=== PATIENT | male | born 1950 | race Caucasian/White ===

== ENCOUNTER 2022-06-14 22:37 | Emergency (ER) | payer OTHER ==
[~2022-06-14] VITALS: Ht 182.9 cm; Wt 161.9 kg
[2022-06-14 22:45] VITALS: BP_SYST 145
[2022-06-14] MEDS ORDERED: DILTIAZEM HCL 30 MG TABLET PO ONE (23:00)
[2022-06-14] MEDS ORDERED: dilTIAZem HCL IVP 5 MG/ML VIAL IVP ONE (23:00)
[2022-06-14] MEDS ORDERED: ASPIRIN 81 MG TAB.CHEW PO ONE (23:00)
[2022-06-14 23:08] LABS: BASOPHILS % (AUTO) 0.1 % (0.0-2.0); HEMOGLOBIN 15.3 g/dL (14.0-18.0); LYMPHOCYTES # (AUTO) 0.5 K/uL (1.0-5.5); LYMPHOCYTES % (AUTO) 4.6 % (20.5-51.5); MEAN CORPUSCULAR HEMOGLOBIN 34 pg (27-31); MEAN CORPUSCULAR HGB CONC 35 % (32-36); MEAN CORPUSCULAR VOLUME 99 fL (79.0-98.0); MONOCYTES # (AUTO) 0.6 K/uL (0.0-1.0); MONOCYTES % (AUTO) 5.3 % (1.7-9.3); NEUTROPHILS # (AUTO) 9.8 K/uL (1.8-7.7); RED BLOOD CELL COUNT(AUTO) 4.45 MIL/uL (4.2-6.2); WHITE BLOOD COUNT (AUTO) 10.9 K/uL (4.8-10.8)
[2022-06-14 23:21] LABS: ANION GAP 7 (5-15); CALCIUM 8.7 mg/dL (8.4-11.0); CHLORIDE 102 mmol/L (98-107); CREATININE 1.46 mg/dL (0.55-1.30); GLUCOSE 120 mg/dL (70-99); UREA NITROGEN, BLOOD 17 mg/dL (8-21)
[2022-06-14 23:25] LABS: INR 1.5 (0.80-1.20); PROTHROMBIN TIME 15.3 SECS (9.5-12.5)
[2022-06-14 23:28] LABS: PLATELET COUNT (AUTO) 53 K/uL (130-430)
[2022-06-14 23:33] LABS: ALANINE AMINOTRANSFERASE 75 U/L (12-78); ASPARTATE AMINOTRANSFERASE 60 U/L (10-37); TOTAL BILIRUBIN 3.1 mg/dL (0.0-1.0)
[2022-06-15] MEDS ORDERED: dilTIAZem HCL IVP 5 MG/ML VIAL IVP ONE (02:15)
[2022-06-15] MEDS ORDERED: ACETAMINOPHEN 500 MG TABLET PO ONE (02:15)
[2022-06-15 03:36] VITALS: BP_SYST 142
[2022-06-15] MEDS ORDERED: LISI-209 PO (19:30)
[2022-06-15] MEDS ORDERED: APIX5TAB PO (19:30)
[2022-06-15] MEDS ORDERED: DILT180C67 PO (19:30)
[2022-06-15] MEDS ORDERED: DILT-118 PO (19:30)
[2022-06-15] MEDS ORDERED: FURO40TA5 PO (19:30)
[2022-06-15] MEDS ORDERED: LEVO50TA8 PO (19:30)
== END 2022-06-15 03:36 | disposition home or self-care (01) ==
LOC: SED 22:37
DX: M25.552 Pain in left hip (principal); I11.0 Hypertensive heart disease with heart failure; I50.9 Heart failure, unspecified; K76.89 Other specified diseases of liver; Z79.899 Other long term (current) drug therapy
CPT/HCPCS: 99285; 96374; 71045; 80053; 82550; 83880; 85025; 85610; 85730; 84484; 36415; 74177; 76376; 96376; J3490 ×2; Q9967

== ENCOUNTER 2022-06-15 16:47 | Inpatient (IN) | payer OTHER ==
[~2022-06-15] VITALS: Ht 185.4 cm; Wt 158.8 kg
[2022-06-15 17:01] VITALS: BP_SYST 138
[2022-06-15] MEDS ORDERED: dilTIAZem HCL IVP 5 MG/ML VIAL IVP ONE (18:00)
[2022-06-15 18:32] LABS: BASOPHILS % (AUTO) 0.3 % (0.0-2.0); HEMATOCRIT 45.7 % (36-54); HEMOGLOBIN 15.9 g/dL (14.0-18.0); LYMPHOCYTES # (AUTO) 0.5 K/uL (1.0-5.5); LYMPHOCYTES % (AUTO) 5.4 % (20.5-51.5); MEAN CORPUSCULAR HEMOGLOBIN 34 pg (27-31); MEAN CORPUSCULAR HGB CONC 35 % (32-36); MEAN CORPUSCULAR VOLUME 99 fL (79.0-98.0); MONOCYTES # (AUTO) 0.5 K/uL (0.0-1.0); MONOCYTES % (AUTO) 5.2 % (1.7-9.3); NEUTROPHILS % (AUTO) 89.1 % (40.0-70.0); RED BLOOD CELL COUNT(AUTO) 4.61 MIL/uL (4.2-6.2); RED CELL DISTRIBUTION WIDTH 15.2 % (9.0-15.0)
[2022-06-15 18:35] LABS: ANION GAP 7 (5-15); CALCIUM 8.8 mg/dL (8.4-11.0); CHLORIDE 102 mmol/L (98-107); CREATININE 1.34 mg/dL (0.55-1.30); GLUCOSE 122 mg/dL (70-99); PLATELET COUNT (AUTO) 47 K/uL (130-430); UREA NITROGEN, BLOOD 21 mg/dL (8-21)
[2022-06-15 18:42] LABS: ALANINE AMINOTRANSFERASE 79 U/L (12-78); ALBUMIN 3.2 g/dL (3.4-4.8); ASPARTATE AMINOTRANSFERASE 80 U/L (10-37); PHOSPHORUS 2.6 mg/dL (2.7-4.5); TOTAL BILIRUBIN 2.4 mg/dL (0.0-1.0)
[2022-06-15] MEDS ORDERED: DILTIAZEM HCL 180 MG CAP.SR.24H PO ONE (19:15)
[2022-06-15 19:25] LABS: BILIRUBIN,URINE NEGATIVE (NEGATIVE); BLOOD, URINE NEGATIVE (NEGATIVE); CLARITY/URINE CLEAR (CLEAR); COLOR,URINE YELLOW (YELLOW); GLUCOSE,URINE NEGATIVE (NEGATIVE); KETONES,URINE NEGATIVE (NEGATIVE); LEUKOCYTE ESTERASE ,URINE NEGATIVE (NEGATIVE); NITRITE, URINE NEGATIVE (NEGATIVE); PROTEIN URINE NEGATIVE (NEGATIVE)
[2022-06-15] MEDS ORDERED: APIX5TAB PO (19:30)
[2022-06-15] MEDS ORDERED: LEVO50TA8 PO (19:30)
[2022-06-15] MEDS ORDERED: LISI-209 PO (19:30)
[2022-06-15] MEDS ORDERED: DILT180C67 PO (19:30)
[2022-06-15] MEDS ORDERED: FURO40TA5 PO (19:30)
[2022-06-15] MEDS ORDERED: DILT-118 PO (19:30)
[2022-06-15] MEDS ORDERED: DILTIAZEM HCL 60 MG TABLET ONE (19:39)
[2022-06-15] MEDS ORDERED: ONDANSETRON HCL 4 MG/2 ML VIAL IVP PRN (22:45)
[2022-06-15] MEDS ORDERED: ACETAMINOPHEN 325 MG TABLET PO PRN (22:45)
[2022-06-15] MEDS ORDERED: LORazepam 2 MG/ML VIAL IVP PRN (22:45)
[2022-06-15] MEDS ORDERED: NALOXONE HCL 0.4 MG/ML AMP (NARCAN) IVP PRN ×2 (22:45)
[2022-06-15] MEDS ORDERED: HYDROcodone/ACETAMIN 5-325 MG TAB (NORCO/ VICODIN) PO PRN (22:45)
[2022-06-15] MEDS ORDERED: HYDROcodone/ACETAMIN 10-325 MG TAB PO PRN (22:45)
[2022-06-15 23:00] VITALS: BP_SYST 126
[2022-06-16 00:15] VITALS: BP_SYST 126
[2022-06-16 04:00] VITALS: BP_SYST 144
[2022-06-16] MEDS ORDERED: ACETAMINOPHEN 325 MG TABLET PO PRN (06:30)
[2022-06-16] MEDS: LEVOTHYROXINE SODIUM 0.05 MG TABLET PO SCH (07:01)
[2022-06-16] MEDS: NORMAL SALINE 5 ML DISP.SYRIN IVF SCH ×3 (07:02→21:01)
[2022-06-16 07:51] LABS: ANION GAP 9 (5-15); CALCIUM 8.3 mg/dL (8.4-11.0); CHLORIDE 103 mmol/L (98-107); CHOLESTEROL 131 mg/dL (<200); CREATININE 1.23 mg/dL (0.55-1.30); GLUCOSE 107 mg/dL (70-99); HDL CHOLESTEROL 33 mg/dL (>45); THYROID STIMULATING HORMONE 1.04 uIu/mL (0.34-4.82); TRIGLYCERIDES 105 mg/dL (30-150); UREA NITROGEN, BLOOD 23 mg/dL (8-21)
[2022-06-16 07:54] LABS: BASOPHILS % (AUTO) 0.3 % (0.0-2.0); EOSINOPHILS % (AUTO) 0.1 % (0.0-4.0); HEMATOCRIT 41.1 % (36-54); HEMOGLOBIN 14.1 g/dL (14.0-18.0); LYMPHOCYTES # (AUTO) 0.9 K/uL (1.0-5.5); MEAN CORPUSCULAR HEMOGLOBIN 34 pg (27-31); MEAN CORPUSCULAR HGB CONC 34 % (32-36); MEAN CORPUSCULAR VOLUME 100 fL (79.0-98.0); MONOCYTES # (AUTO) 0.8 K/uL (0.0-1.0); MONOCYTES % (AUTO) 9.2 % (1.7-9.3); NEUTROPHILS # (AUTO) 6.8 K/uL (1.8-7.7); NEUTROPHILS % (AUTO) 80.4 % (40.0-70.0); RED BLOOD CELL COUNT(AUTO) 4.12 MIL/uL (4.2-6.2); RED CELL DISTRIBUTION WIDTH 15.2 % (9.0-15.0); WHITE BLOOD COUNT (AUTO) 8.5 K/uL (4.8-10.8)
[2022-06-16 08:03] LABS: PLATELET COUNT (AUTO) 48 K/uL (130-430)
[2022-06-16 08:28] VITALS: BP_SYST 129
[2022-06-16] MEDS ORDERED: lisinopriL 5 MG TABLET PO SCH (09:00)
[2022-06-16] MEDS: DILTIAZEM HCL 180 MG CAP.SR.24H PO SCH ×2 (10:02→20:55)
[2022-06-16] MEDS: FUROSEMIDE 40 MG TABLET PO SCH ×2 (10:03→20:57)
[2022-06-16] MEDS: APIXABAN 2.5 MG TABLET PO SCH ×2 (10:05→20:56)
[2022-06-16 11:57] VITALS: BP_SYST 125
[2022-06-16 20:00] VITALS: BP_SYST 135
[2022-06-17 00:06] VITALS: BP_SYST 130
[2022-06-17] MEDS: LEVOTHYROXINE SODIUM 0.05 MG TABLET PO SCH (06:10)
[2022-06-17] MEDS: NORMAL SALINE 5 ML DISP.SYRIN IVF SCH ×3 (06:11→22:01)
[2022-06-17 08:00] VITALS: BP_SYST 113
[2022-06-17 08:20] LABS: BASOPHILS % (AUTO) 0.4 % (0.0-2.0); EOSINOPHILS # (AUTO) 0.1 K/uL (0.0-0.4); EOSINOPHILS % (AUTO) 1.3 % (0.0-4.0); HEMATOCRIT 40.3 % (36-54); HEMOGLOBIN 13.9 g/dL (14.0-18.0); LYMPHOCYTES # (AUTO) 0.6 K/uL (1.0-5.5); LYMPHOCYTES % (AUTO) 9.2 % (20.5-51.5); MEAN CORPUSCULAR HEMOGLOBIN 34 pg (27-31); MEAN CORPUSCULAR HGB CONC 35 % (32-36); MEAN CORPUSCULAR VOLUME 99 fL (79.0-98.0); MONOCYTES # (AUTO) 0.6 K/uL (0.0-1.0); MONOCYTES % (AUTO) 8.8 % (1.7-9.3); NEUTROPHILS # (AUTO) 5.6 K/uL (1.8-7.7); NEUTROPHILS % (AUTO) 80.3 % (40.0-70.0); PLATELET COUNT (AUTO) 51 K/uL (130-430); RED BLOOD CELL COUNT(AUTO) 4.06 MIL/uL (4.2-6.2); RED CELL DISTRIBUTION WIDTH 15.2 % (9.0-15.0)
[2022-06-17 08:58] LABS: ALANINE AMINOTRANSFERASE 70 U/L (12-78); ALBUMIN 2.5 g/dL (3.4-4.8); ANION GAP 4 (5-15); ASPARTATE AMINOTRANSFERASE 70 U/L (10-37); CALCIUM 8.1 mg/dL (8.4-11.0); CHLORIDE 103 mmol/L (98-107); CREATININE 1.11 mg/dL (0.55-1.30); GLUCOSE 92 mg/dL (70-99); PHOSPHORUS 3.4 mg/dL (2.7-4.5); TOTAL BILIRUBIN 2.5 mg/dL (0.0-1.0); UREA NITROGEN, BLOOD 21 mg/dL (8-21)
[2022-06-17] MEDS: FUROSEMIDE 40 MG TABLET PO SCH ×2 (08:58→21:59)
[2022-06-17] MEDS: DILTIAZEM HCL 180 MG CAP.SR.24H PO SCH ×2 (08:58→21:59)
[2022-06-17] MEDS: APIXABAN 2.5 MG TABLET PO SCH ×2 (09:00→22:00)
[2022-06-17 12:00] VITALS: BP_SYST 101
[2022-06-17 16:15] VITALS: BP_SYST 109
[2022-06-17 19:00] VITALS: BP_SYST 113
[2022-06-17 20:00] VITALS: BP_SYST 113
[2022-06-18] MEDS: NORMAL SALINE 5 ML DISP.SYRIN IVF SCH ×3 (06:21→23:41)
[2022-06-18] MEDS: LEVOTHYROXINE SODIUM 0.05 MG TABLET PO SCH (06:21)
[2022-06-18 06:54] LABS: BASOPHILS % (AUTO) 0.5 % (0.0-2.0); EOSINOPHILS # (AUTO) 0.1 K/uL (0.0-0.4); EOSINOPHILS % (AUTO) 1.4 % (0.0-4.0); HEMATOCRIT 40.8 % (36-54); HEMOGLOBIN 14.1 g/dL (14.0-18.0); LYMPHOCYTES # (AUTO) 0.9 K/uL (1.0-5.5); LYMPHOCYTES % (AUTO) 10.8 % (20.5-51.5); MEAN CORPUSCULAR HEMOGLOBIN 34 pg (27-31); MEAN CORPUSCULAR HGB CONC 34 % (32-36); MEAN CORPUSCULAR VOLUME 100 fL (79.0-98.0); MONOCYTES # (AUTO) 0.8 K/uL (0.0-1.0); MONOCYTES % (AUTO) 9.6 % (1.7-9.3); NEUTROPHILS # (AUTO) 6.6 K/uL (1.8-7.7); NEUTROPHILS % (AUTO) 77.7 % (40.0-70.0); PLATELET COUNT (AUTO) 56 K/uL (130-430); RED CELL DISTRIBUTION WIDTH 14.8 % (9.0-15.0); WHITE BLOOD COUNT (AUTO) 8.5 K/uL (4.8-10.8)
[2022-06-18 07:23] LABS: ALANINE AMINOTRANSFERASE 81 U/L (12-78); ALBUMIN 2.4 g/dL (3.4-4.8); ANION GAP 4 (5-15); ASPARTATE AMINOTRANSFERASE 76 U/L (10-37); CALCIUM 8.1 mg/dL (8.4-11.0); CHLORIDE 101 mmol/L (98-107); CREATININE 1.18 mg/dL (0.55-1.30); GLUCOSE 95 mg/dL (70-99); PHOSPHORUS 3.2 mg/dL (2.7-4.5); TOTAL BILIRUBIN 3.1 mg/dL (0.0-1.0); UREA NITROGEN, BLOOD 19 mg/dL (8-21)
[2022-06-18 08:00] VITALS: BP_SYST 141
[2022-06-18] MEDS: FUROSEMIDE 40 MG TABLET PO SCH ×2 (08:41→23:34)
[2022-06-18] MEDS: DILTIAZEM HCL 180 MG CAP.SR.24H PO SCH ×2 (08:42→23:33)
[2022-06-18] MEDS: APIXABAN 2.5 MG TABLET PO SCH ×2 (08:44→23:37)
[2022-06-19] VITALS: BP_SYST 126
[2022-06-19] MEDS: NORMAL SALINE 5 ML DISP.SYRIN IVF SCH ×3 (06:02→21:49)
[2022-06-19] MEDS: LEVOTHYROXINE SODIUM 0.05 MG TABLET PO SCH (06:02)
[2022-06-19 06:10] LABS: BASOPHILS % (AUTO) 0.4 % (0.0-2.0); EOSINOPHILS # (AUTO) 0.2 K/uL (0.0-0.4); EOSINOPHILS % (AUTO) 2.1 % (0.0-4.0); HEMATOCRIT 41.4 % (36-54); HEMOGLOBIN 14.3 g/dL (14.0-18.0); LYMPHOCYTES # (AUTO) 1.1 K/uL (1.0-5.5); LYMPHOCYTES % (AUTO) 12.1 % (20.5-51.5); MEAN CORPUSCULAR HEMOGLOBIN 34 pg (27-31); MEAN CORPUSCULAR HGB CONC 35 % (32-36); MEAN CORPUSCULAR VOLUME 99 fL (79.0-98.0); MONOCYTES # (AUTO) 0.9 K/uL (0.0-1.0); MONOCYTES % (AUTO) 9.6 % (1.7-9.3); NEUTROPHILS # (AUTO) 7.2 K/uL (1.8-7.7); NEUTROPHILS % (AUTO) 75.8 % (40.0-70.0); PLATELET COUNT (AUTO) 63 K/uL (130-430); RED BLOOD CELL COUNT(AUTO) 4.17 MIL/uL (4.2-6.2); RED CELL DISTRIBUTION WIDTH 14.8 % (9.0-15.0); WHITE BLOOD COUNT (AUTO) 9.5 K/uL (4.8-10.8)
[2022-06-19 06:50] LABS: ANION GAP 6 (5-15); CALCIUM 8.1 mg/dL (8.4-11.0); CHLORIDE 100 mmol/L (98-107); CREATININE 1.21 mg/dL (0.55-1.30); GLUCOSE 94 mg/dL (70-99); UREA NITROGEN, BLOOD 18 mg/dL (8-21)
[2022-06-19 08:04] VITALS: BP_SYST 117
[2022-06-19] MEDS: DILTIAZEM HCL 180 MG CAP.SR.24H PO SCH ×2 (08:40→21:00)
[2022-06-19] MEDS: FUROSEMIDE 40 MG TABLET PO SCH ×2 (08:41→21:00)
[2022-06-19] MEDS: APIXABAN 2.5 MG TABLET PO SCH ×2 (08:43→21:46)
[2022-06-19 12:08] VITALS: BP_SYST 103
[2022-06-19 16:45] VITALS: BP_SYST 102
[2022-06-19 20:00] VITALS: BP_SYST 93
[2022-06-20 00:19] VITALS: BP_SYST 108
[2022-06-20 02:10] VITALS: BP_SYST 130
[2022-06-20] MEDS: LEVOTHYROXINE SODIUM 0.05 MG TABLET PO SCH (05:58)
[2022-06-20] MEDS: NORMAL SALINE 5 ML DISP.SYRIN IVF SCH (05:59)
[2022-06-20 07:40] LABS: BASOPHILS % (AUTO) 0.6 % (0.0-2.0); EOSINOPHILS # (AUTO) 0.3 K/uL (0.0-0.4); EOSINOPHILS % (AUTO) 3.9 % (0.0-4.0); HEMATOCRIT 42.2 % (36-54); HEMOGLOBIN 14.6 g/dL (14.0-18.0); LYMPHOCYTES # (AUTO) 1.3 K/uL (1.0-5.5); LYMPHOCYTES % (AUTO) 16.6 % (20.5-51.5); MEAN CORPUSCULAR HEMOGLOBIN 34 pg (27-31); MEAN CORPUSCULAR HGB CONC 35 % (32-36); MEAN CORPUSCULAR VOLUME 99 fL (79.0-98.0); MONOCYTES # (AUTO) 0.7 K/uL (0.0-1.0); MONOCYTES % (AUTO) 8.5 % (1.7-9.3); NEUTROPHILS # (AUTO) 5.5 K/uL (1.8-7.7); NEUTROPHILS % (AUTO) 70.4 % (40.0-70.0); PLATELET COUNT (AUTO) 77 K/uL (130-430); RED BLOOD CELL COUNT(AUTO) 4.28 MIL/uL (4.2-6.2); RED CELL DISTRIBUTION WIDTH 14.6 % (9.0-15.0); WHITE BLOOD COUNT (AUTO) 7.9 K/uL (4.8-10.8)
[2022-06-20 07:52] LABS: ANION GAP 5 (5-15); CALCIUM 8.2 mg/dL (8.4-11.0); CHLORIDE 99 mmol/L (98-107); CREATININE 1.13 mg/dL (0.55-1.30); GLUCOSE 98 mg/dL (70-99); UREA NITROGEN, BLOOD 16 mg/dL (8-21)
[2022-06-20 08:08] VITALS: BP_SYST 116
[2022-06-20] MEDS: FUROSEMIDE 40 MG TABLET PO SCH (08:21)
[2022-06-20] MEDS: DILTIAZEM HCL 180 MG CAP.SR.24H PO SCH (08:21)
[2022-06-20] MEDS: APIXABAN 2.5 MG TABLET PO SCH (08:23)
[2022-06-20 12:19] VITALS: BP_SYST 112
[2022-06-20 13:10] VITALS: BP_SYST 117
== END 2022-06-20 13:40 | disposition home or self-care (01) | DRG 682 ==
LOC: SED 16:47 → STU 19:21
PROVIDERS: ADMIT Specialist; ATTEND Specialist
DX: N17.0 Acute kidney failure with tubular necrosis (principal); J96.00 Acute respiratory failure, unspecified whether with hypoxia or hypercapnia; G45.0 Vertebro-basilar artery syndrome; E46 Unspecified protein-calorie malnutrition; I48.20 Chronic atrial fibrillation, unspecified; Z68.42 Body mass index [BMI] 45.0-49.9, adult; I69.351 Hemiplegia and hemiparesis following cerebral infarction affecting right dominant side; G45.9 Transient cerebral ischemic attack, unspecified; K74.60 Unspecified cirrhosis of liver; I10 Essential (primary) hypertension; D69.6 Thrombocytopenia, unspecified; E03.9 Hypothyroidism, unspecified; Z20.822 Contact with and (suspected) exposure to COVID-19; G62.9 Polyneuropathy, unspecified; Z79.01 Long term (current) use of anticoagulants; Z79.899 Other long term (current) drug therapy
CPT/HCPCS: 36415; 36600; 70450-TC; 76376; 80048; 80053; 80061; 81003; 82140; 82803-TC; 83735; 84100; 84443; 84484; 85025; 85379; 87081; 93005; 93306; 93880; 93970; 97110-GP; 97116-GP; 97163-GP; 97530-GP; 99285; G0378; J3490

== ENCOUNTER 2023-04-03 16:25 | Inpatient (IN) | payer OTHER ==
[~2023-04-03] VITALS: Ht 175.3 cm; Wt 158.1 kg
[2023-04-03 16:25] VITALS: BP_SYST 144; PULSE 107; RESP 22; TEMP 98.2; O2SAT 91
[~2023-04-03 16:25] MED LIST: APIX5TAB PO; DILT-118 PO; FURO40TA5 PO; LEVO50TA8 PO; LISI-209 PO
[2023-04-03] MEDS ORDERED: CHOL200019 PO (16:57)
[2023-04-03 18:54] LABS: BASOPHILS # (AUTO) 0.1 K/uL (0.0-0.2); BASOPHILS % (AUTO) 0.8 % (0.0-2.0); EOSINOPHILS # (AUTO) 0.1 K/uL (0.0-0.4); HEMATOCRIT 43.6 % (36-54); HEMOGLOBIN 15.1 g/dL (14.0-18.0); LYMPHOCYTES # (AUTO) 0.9 K/uL (1.0-5.5); LYMPHOCYTES % (AUTO) 9.3 % (20.5-51.5); MEAN CORPUSCULAR HEMOGLOBIN 35 pg (27-31); MEAN CORPUSCULAR HGB CONC 35 % (32-36); MEAN CORPUSCULAR VOLUME 100 fL (79.0-98.0); MONOCYTES # (AUTO) 0.8 K/uL (0.0-1.0); MONOCYTES % (AUTO) 7.4 % (1.7-9.3); NEUTROPHILS # (AUTO) 8.4 K/uL (1.8-7.7); NEUTROPHILS % (AUTO) 81.5 % (40.0-70.0); PLATELET COUNT (AUTO) 142 K/uL (130-430); RED BLOOD CELL COUNT(AUTO) 4.35 MIL/uL (4.2-6.2); RED CELL DISTRIBUTION WIDTH 15.5 % (9.0-15.0); WHITE BLOOD COUNT (AUTO) 10.2 K/uL (4.8-10.8)
[2023-04-03 19:09] LABS: ANION GAP 9 (5-15); CALCIUM 8.6 mg/dL (8.4-11.0); CARBON DIOXIDE 29 mmol/L (23-29); CHLORIDE 99 mmol/L (98-107); CREATINE KINASE, TOTAL 114 U/L (39-308); CREATININE 1.86 mg/dL (0.55-1.30); GLUCOSE 101 mg/dL (74-106); POTASSIUM 3.4 mmol/L (3.5-5.1); SODIUM SERUM 137 mmol/L (136-145); UREA NITROGEN, BLOOD 29 mg/dL (8-21)
[2023-04-03] MEDS ORDERED: FUROSEMIDE 40 MG/4 ML VIAL IVP ONE (19:45)
[2023-04-03 19:55] LABS: INR 1.6 (0.80-1.20)
[2023-04-03 20:11] LABS: FREE T4 (FREE THYROXINE) 1.6 ng/dL (0.6-1.6); THYROID STIMULATING HORMONE 4.46 uIu/mL (0.34-4.82)
[2023-04-03 21:24] LABS: BILIRUBIN,URINE NEGATIVE (NEGATIVE); BLOOD, URINE NEGATIVE (NEGATIVE); CLARITY/URINE CLEAR (CLEAR); COLOR,URINE YELLOW (YELLOW); GLUCOSE,URINE NEGATIVE (NEGATIVE); KETONES,URINE NEGATIVE (NEGATIVE); LEUKOCYTE ESTERASE ,URINE NEGATIVE (NEGATIVE); NITRITE, URINE NEGATIVE (NEGATIVE); PH,URINE 5.5 (5.0-8.0); PROTEIN URINE NEGATIVE (NEGATIVE)
[2023-04-03] MEDS ORDERED: MORPHINE 2 MG/ML INJ. SYRINGE IVP PRN (22:00)
[2023-04-03] MEDS ORDERED: ACETAMINOPHEN 325 MG TABLET PO PRN (22:00)
[2023-04-03] MEDS ORDERED: ONDANSETRON HCL 4 MG/2 ML VIAL IVP PRN (22:00)
[2023-04-03] MEDS ORDERED: HYDROcodone/ACETAMIN 10-325 MG TAB PO PRN (22:00)
[2023-04-03] MEDS ORDERED: HYDROcodone/ACETAMIN 5-325 MG TAB (NORCO/ VICODIN) PO PRN (22:00)
[2023-04-03] MEDS ORDERED: hydrALAZINE HCL 20 MG/ML VIAL IVP PRN (22:15)
[2023-04-03] MEDS ORDERED: POTASSIUM CHLORIDE 20 MEQ TABLET.ER PO PRN (22:15)
[2023-04-03] MEDS ORDERED: guaiFENesin 200 MG/10 ML UDC PO PRN (22:15)
[2023-04-03] MEDS: IPRATROPIUM BROM 0.5 MG/2.5 ML VIAL.NEB (ATROVENT) INH SCH (23:00)
[2023-04-04] VITALS (13 sets, daily range): BP systolic 96–125; PULSE 86–117; RESP 18–22; TEMP 97.5–98.9; O2SAT 93–98
[2023-04-04] MEDS: IPRATROPIUM BROM 0.5 MG/2.5 ML VIAL.NEB (ATROVENT) INH SCH ×6 (02:57→23:38)
[2023-04-04 05:48] LABS: BASOPHILS % (AUTO) 0.8 % (0.0-2.0); EOSINOPHILS # (AUTO) 0.1 K/uL (0.0-0.4); EOSINOPHILS % (AUTO) 1.8 % (0.0-4.0); HEMATOCRIT 36.9 % (36-54); HEMOGLOBIN 12.6 g/dL (14.0-18.0); LYMPHOCYTES # (AUTO) 0.6 K/uL (1.0-5.5); LYMPHOCYTES % (AUTO) 12.1 % (20.5-51.5); MEAN CORPUSCULAR HEMOGLOBIN 35 pg (27-31); MEAN CORPUSCULAR HGB CONC 34 % (32-36); MEAN CORPUSCULAR VOLUME 102 fL (79.0-98.0); MONOCYTES # (AUTO) 0.5 K/uL (0.0-1.0); NEUTROPHILS % (AUTO) 75.3 % (40.0-70.0); PLATELET COUNT (AUTO) 81 K/uL (130-430); RED BLOOD CELL COUNT(AUTO) 3.63 MIL/uL (4.2-6.2); RED CELL DISTRIBUTION WIDTH 15.6 % (9.0-15.0); WHITE BLOOD COUNT (AUTO) 5.3 K/uL (4.8-10.8)
[2023-04-04 06:15] LABS: ALANINE AMINOTRANSFERASE 35 U/L (12-78); ALBUMIN 2.3 g/dL (3.4-4.8); ANION GAP 11 (5-15); ASPARTATE AMINOTRANSFERASE 50 U/L (10-37); CALCIUM 8.5 mg/dL (8.4-11.0); CARBON DIOXIDE 29 mmol/L (23-29); CHLORIDE 104 mmol/L (98-107); GLUCOSE 81 mg/dL (74-106); POTASSIUM 3.4 mmol/L (3.5-5.1); SODIUM SERUM 144 mmol/L (136-145); TOTAL PROTEIN, SERUM 6.3 g/dL (6.4-8.3); UREA NITROGEN, BLOOD 29 mg/dL (8-21)
[2023-04-04] MEDS: FUROSEMIDE 40 MG/4 ML VIAL IVP SCH ×2 (08:38→21:36)
[2023-04-04] MEDS: APIXABAN 2.5 MG TABLET PO SCH ×2 (08:41→21:36)
[2023-04-04] MEDS ORDERED: LEVOTHYROXINE SODIUM 0.05 MG TABLET PO SCH (09:00)
[2023-04-04] MEDS: DILTIAZEM HCL 180 MG CAP.SR.24H PO SCH ×2 (14:41→21:35)
[2023-04-05] VITALS (8 sets, daily range): BP systolic 94–115; PULSE 95–98; RESP 18–20; TEMP 97.1–97.8; O2SAT 94–97
[2023-04-05] MEDS: IPRATROPIUM BROM 0.5 MG/2.5 ML VIAL.NEB (ATROVENT) INH SCH ×6 (03:32→23:22)
[2023-04-05] MEDS: LEVOTHYROXINE SODIUM 0.05 MG TABLET PO SCH (06:37)
[2023-04-05 07:28] LABS: BASOPHILS % (AUTO) 0.9 % (0.0-2.0); EOSINOPHILS # (AUTO) 0.1 K/uL (0.0-0.4); EOSINOPHILS % (AUTO) 2.9 % (0.0-4.0); HEMATOCRIT 35.7 % (36-54); HEMOGLOBIN 12.2 g/dL (14.0-18.0); LYMPHOCYTES # (AUTO) 0.6 K/uL (1.0-5.5); LYMPHOCYTES % (AUTO) 12.7 % (20.5-51.5); MEAN CORPUSCULAR HEMOGLOBIN 35 pg (27-31); MEAN CORPUSCULAR HGB CONC 34 % (32-36); MEAN CORPUSCULAR VOLUME 102 fL (79.0-98.0); MONOCYTES # (AUTO) 0.4 K/uL (0.0-1.0); MONOCYTES % (AUTO) 9.2 % (1.7-9.3); NEUTROPHILS # (AUTO) 3.5 K/uL (1.8-7.7); NEUTROPHILS % (AUTO) 74.3 % (40.0-70.0); PLATELET COUNT (AUTO) 73 K/uL (130-430); RED BLOOD CELL COUNT(AUTO) 3.52 MIL/uL (4.2-6.2); RED CELL DISTRIBUTION WIDTH 15.8 % (9.0-15.0); WHITE BLOOD COUNT (AUTO) 4.7 K/uL (4.8-10.8)
[2023-04-05 07:46] LABS: ALANINE AMINOTRANSFERASE 35 U/L (12-78); ALBUMIN 2.2 g/dL (3.4-4.8); ANION GAP 8 (5-15); ASPARTATE AMINOTRANSFERASE 52 U/L (10-37); CALCIUM 8.4 mg/dL (8.4-11.0); CARBON DIOXIDE 30 mmol/L (23-29); CHLORIDE 106 mmol/L (98-107); CREATININE 1.57 mg/dL (0.55-1.30); GLUCOSE 85 mg/dL (74-106); POTASSIUM 3.2 mmol/L (3.5-5.1); SODIUM SERUM 144 mmol/L (136-145); TOTAL BILIRUBIN 2.5 mg/dL (0.0-1.0); TOTAL PROTEIN, SERUM 6.1 g/dL (6.4-8.3); UREA NITROGEN, BLOOD 28 mg/dL (8-21)
[2023-04-05] MEDS: FUROSEMIDE 40 MG/4 ML VIAL IVP SCH ×2 (09:00→21:45)
[2023-04-05] MEDS: DILTIAZEM HCL 180 MG CAP.SR.24H PO SCH ×2 (09:00→21:45)
[2023-04-05] MEDS: APIXABAN 2.5 MG TABLET PO SCH ×2 (09:56→21:46)
[2023-04-06] VITALS (9 sets, daily range): BP systolic 98–102; PULSE 83–96; RESP 18–22; TEMP 97.8–98.1; O2SAT 92–98
[2023-04-06] MEDS: IPRATROPIUM BROM 0.5 MG/2.5 ML VIAL.NEB (ATROVENT) INH SCH ×6 (03:00→23:00)
[2023-04-06] MEDS: LEVOTHYROXINE SODIUM 0.05 MG TABLET PO SCH (06:34)
[2023-04-06] MEDS: DILTIAZEM HCL 180 MG CAP.SR.24H PO SCH (09:00)
[2023-04-06] MEDS: APIXABAN 2.5 MG TABLET PO SCH ×2 (09:00→22:21)
[2023-04-06] MEDS: FUROSEMIDE 40 MG/4 ML VIAL IVP SCH ×2 (09:00→21:00)
[2023-04-06 09:07] LABS: BASOPHILS % (AUTO) 0.7 % (0.0-2.0); EOSINOPHILS # (AUTO) 0.1 K/uL (0.0-0.4); EOSINOPHILS % (AUTO) 2.3 % (0.0-4.0); HEMATOCRIT 40.5 % (36-54); HEMOGLOBIN 13.8 g/dL (14.0-18.0); LYMPHOCYTES # (AUTO) 0.6 K/uL (1.0-5.5); LYMPHOCYTES % (AUTO) 10.4 % (20.5-51.5); MEAN CORPUSCULAR HEMOGLOBIN 35 pg (27-31); MEAN CORPUSCULAR HGB CONC 34 % (32-36); MEAN CORPUSCULAR VOLUME 102 fL (79.0-98.0); MONOCYTES # (AUTO) 0.5 K/uL (0.0-1.0); MONOCYTES % (AUTO) 8.7 % (1.7-9.3); NEUTROPHILS # (AUTO) 4.2 K/uL (1.8-7.7); NEUTROPHILS % (AUTO) 77.9 % (40.0-70.0); PLATELET COUNT (AUTO) 76 K/uL (130-430); RED BLOOD CELL COUNT(AUTO) 3.96 MIL/uL (4.2-6.2); RED CELL DISTRIBUTION WIDTH 15.7 % (9.0-15.0); WHITE BLOOD COUNT (AUTO) 5.4 K/uL (4.8-10.8)
[2023-04-06 09:25] LABS: ALANINE AMINOTRANSFERASE 44 U/L (12-78); ALBUMIN 2.5 g/dL (3.4-4.8); ANION GAP 6 (5-15); ASPARTATE AMINOTRANSFERASE 59 U/L (10-37); CARBON DIOXIDE 31 mmol/L (23-29); CHLORIDE 104 mmol/L (98-107); CREATININE 1.65 mg/dL (0.55-1.30); GLUCOSE 104 mg/dL (74-106); POTASSIUM 3.1 mmol/L (3.5-5.1); SODIUM SERUM 141 mmol/L (136-145); TOTAL BILIRUBIN 2.8 mg/dL (0.0-1.0); TOTAL PROTEIN, SERUM 6.9 g/dL (6.4-8.3); UREA NITROGEN, BLOOD 28 mg/dL (8-21)
[2023-04-07] VITALS (9 sets, daily range): BP systolic 103–118; PULSE 93–109; RESP 18–20; TEMP 97.7–98.3; O2SAT 92–96
[2023-04-07] MEDS: IPRATROPIUM BROM 0.5 MG/2.5 ML VIAL.NEB (ATROVENT) INH SCH ×6 (03:00→23:18)
[2023-04-07] MEDS: LEVOTHYROXINE SODIUM 0.05 MG TABLET PO SCH (06:21)
[2023-04-07 08:19] LABS: BASOPHILS # (AUTO) 0.1 K/uL (0.0-0.2); BASOPHILS % (AUTO) 1.1 % (0.0-2.0); EOSINOPHILS # (AUTO) 0.2 K/uL (0.0-0.4); EOSINOPHILS % (AUTO) 3.1 % (0.0-4.0); HEMATOCRIT 37.9 % (36-54); HEMOGLOBIN 12.9 g/dL (14.0-18.0); LYMPHOCYTES # (AUTO) 0.7 K/uL (1.0-5.5); LYMPHOCYTES % (AUTO) 12.1 % (20.5-51.5); MEAN CORPUSCULAR HEMOGLOBIN 35 pg (27-31); MEAN CORPUSCULAR HGB CONC 34 % (32-36); MEAN CORPUSCULAR VOLUME 102 fL (79.0-98.0); MONOCYTES # (AUTO) 0.5 K/uL (0.0-1.0); MONOCYTES % (AUTO) 8.5 % (1.7-9.3); NEUTROPHILS # (AUTO) 4.2 K/uL (1.8-7.7); NEUTROPHILS % (AUTO) 75.2 % (40.0-70.0); PLATELET COUNT (AUTO) 65 K/uL (130-430); RED BLOOD CELL COUNT(AUTO) 3.72 MIL/uL (4.2-6.2); RED CELL DISTRIBUTION WIDTH 15.5 % (9.0-15.0); WHITE BLOOD COUNT (AUTO) 5.6 K/uL (4.8-10.8)
[2023-04-07 08:34] LABS: ALANINE AMINOTRANSFERASE 44 U/L (12-78); ALBUMIN 2.5 g/dL (3.4-4.8); ANION GAP 6 (5-15); ASPARTATE AMINOTRANSFERASE 60 U/L (10-37); CALCIUM 8.7 mg/dL (8.4-11.0); CARBON DIOXIDE 32 mmol/L (23-29); CHLORIDE 103 mmol/L (98-107); CREATININE 1.34 mg/dL (0.55-1.30); GLUCOSE 89 mg/dL (74-106); POTASSIUM 3.1 mmol/L (3.5-5.1); SODIUM SERUM 141 mmol/L (136-145); TOTAL BILIRUBIN 2.8 mg/dL (0.0-1.0); TOTAL PROTEIN, SERUM 6.7 g/dL (6.4-8.3); UREA NITROGEN, BLOOD 24 mg/dL (8-21)
[2023-04-07] MEDS: FUROSEMIDE 40 MG/4 ML VIAL IVP SCH ×2 (11:14→21:37)
[2023-04-07] MEDS: APIXABAN 2.5 MG TABLET PO SCH ×2 (11:16→21:38)
[2023-04-08] VITALS: BP_SYST 122; PULSE 93; RESP 20; TEMP 97.8; O2SAT 96
[2023-04-08] MEDS: IPRATROPIUM BROM 0.5 MG/2.5 ML VIAL.NEB (ATROVENT) INH SCH ×3 (03:00→10:53)
[2023-04-08 06:15] LABS: BASOPHILS % (AUTO) 0.8 % (0.0-2.0); EOSINOPHILS # (AUTO) 0.2 K/uL (0.0-0.4); EOSINOPHILS % (AUTO) 3.3 % (0.0-4.0); HEMATOCRIT 34.5 % (36-54); LYMPHOCYTES # (AUTO) 0.6 K/uL (1.0-5.5); LYMPHOCYTES % (AUTO) 11.3 % (20.5-51.5); MEAN CORPUSCULAR HEMOGLOBIN 35 pg (27-31); MEAN CORPUSCULAR HGB CONC 35 % (32-36); MEAN CORPUSCULAR VOLUME 101 fL (79.0-98.0); MONOCYTES # (AUTO) 0.4 K/uL (0.0-1.0); NEUTROPHILS % (AUTO) 76.6 % (40.0-70.0); PLATELET COUNT (AUTO) 56 K/uL (130-430); RED BLOOD CELL COUNT(AUTO) 3.41 MIL/uL (4.2-6.2); RED CELL DISTRIBUTION WIDTH 15.4 % (9.0-15.0); WHITE BLOOD COUNT (AUTO) 5.2 K/uL (4.8-10.8)
[2023-04-08 06:46] LABS: ALANINE AMINOTRANSFERASE 45 U/L (12-78); ALBUMIN 2.2 g/dL (3.4-4.8); ANION GAP 3 (5-15); ASPARTATE AMINOTRANSFERASE 64 U/L (10-37); CALCIUM 7.7 mg/dL (8.4-11.0); CARBON DIOXIDE 33 mmol/L (23-29); CHLORIDE 106 mmol/L (98-107); CREATININE 1.23 mg/dL (0.55-1.30); GLUCOSE 90 mg/dL (74-106); POTASSIUM 3.5 mmol/L (3.5-5.1); SODIUM SERUM 142 mmol/L (136-145); TOTAL BILIRUBIN 2.6 mg/dL (0.0-1.0); TOTAL PROTEIN, SERUM 6.3 g/dL (6.4-8.3); UREA NITROGEN, BLOOD 20 mg/dL (8-21)
[2023-04-08] MEDS: LEVOTHYROXINE SODIUM 0.05 MG TABLET PO SCH (07:15)
[2023-04-08 08:00] VITALS: O2SAT 92
[2023-04-08 08:20] VITALS: O2SAT 92
[2023-04-08] MEDS: APIXABAN 2.5 MG TABLET PO SCH (10:07)
[2023-04-08] MEDS: FUROSEMIDE 40 MG/4 ML VIAL IVP SCH (10:08)
[2023-04-08 10:50] VITALS: O2SAT 93
[2023-04-08] MEDS ORDERED: POTA8TAB66 PO (16:06)
[2023-04-08 16:49] VITALS: BP_SYST 125; PULSE 92; RESP 18; TEMP 97; O2SAT 92
[2023-04-08 16:52] VITALS: BP_SYST 125; PULSE 102; RESP 18; TEMP 97
[2023-04-09 00:07] LABS: FOLATE (FOLIC ACID) 4.3 ng/mL (>3.0)
== END 2023-04-08 23:52 | DRG 682 ==
LOC: SED 16:25 → SIC 22:00 → STU 22:43 → SMU 04-04 10:14
PROVIDERS: ADMIT Family Medicine; ATTEND Family Medicine
DX: N17.9 Acute kidney failure, unspecified (principal); E43 Unspecified severe protein-calorie malnutrition; I50.33 Acute on chronic diastolic (congestive) heart failure; J96.21 Acute and chronic respiratory failure with hypoxia; E87.20 Acidosis, unspecified; Z68.43 Body mass index [BMI] 50.0-59.9, adult; I11.0 Hypertensive heart disease with heart failure; K74.60 Unspecified cirrhosis of liver; I48.91 Unspecified atrial fibrillation; E03.9 Hypothyroidism, unspecified; I45.10 Unspecified right bundle-branch block; E87.6 Hypokalemia; Z20.822 Contact with and (suspected) exposure to COVID-19; Z79.84 Long term (current) use of oral hypoglycemic drugs; Z79.899 Other long term (current) drug therapy; Z86.73 Personal history of transient ischemic attack (TIA), and cerebral infarction without residual deficits
CPT/HCPCS: 36415; 71045; 76705; 80048; 80053; 81001; 81003; 82550; 82607; 82746; 83605; 83880; 84439; 84443; 84484; 85025; 85379; 85610-TC; 85730-TC; 87040; 87086; 93005; 93306; 93970; 94640; 94760; 96374; 97110-GP; 97530-GP; 99291; G0378; J1940

== ENCOUNTER 2023-05-12 16:01 | Inpatient (IN) | payer OTHER ==
[~2023-05-12] VITALS: Ht 180.3 cm; Wt 123.4 kg
[2023-05-12 16:01] VITALS: PULSE 88; RESP 22; TEMP 98.3; O2SAT 96
[~2023-05-12 16:01] MED LIST changes: +CHOL200019 PO; -LISI-209 PO; +POTA8TAB66 PO
[2023-05-12] MEDS: DILTIAZEM HCL 60 MG TABLET PO ONE (16:30)
[2023-05-12] MEDS: dilTIAZem HCL IVP 5 MG/ML VIAL IVP ONE ×2 (16:30→18:40)
[2023-05-12 16:39] LABS: BASOPHILS % (AUTO) 2.4 % (0.0-2.0); EOSINOPHILS # (AUTO) 0.5 K/uL (0.0-0.4); EOSINOPHILS % (AUTO) 5.9 % (0.0-4.0); HEMATOCRIT 37.9 % (36-54); HEMOGLOBIN 13.2 g/dL (14.0-18.0); LYMPHOCYTES # (AUTO) 1.2 K/uL (1.0-5.5); LYMPHOCYTES % (AUTO) 15.4 % (20.5-51.5); MEAN CORPUSCULAR HEMOGLOBIN 36 pg (27-31); MEAN CORPUSCULAR HGB CONC 35 % (32-36); MEAN CORPUSCULAR VOLUME 102 fL (79.0-98.0); MONOCYTES # (AUTO) 0.8 K/uL (0.0-1.0); NEUTROPHILS # (AUTO) 5.2 K/uL (1.8-7.7); NEUTROPHILS % (AUTO) 66.3 % (40.0-70.0); PLATELET COUNT (AUTO) 84 K/uL (130-430); RED BLOOD CELL COUNT(AUTO) 3.73 MIL/uL (4.2-6.2); RED CELL DISTRIBUTION WIDTH 15.9 % (9.0-15.0); WHITE BLOOD COUNT (AUTO) 7.8 K/uL (4.8-10.8)
[2023-05-12 16:45] LABS: COVID19 ANTIGEN SOFIA FIA NEGATIVE (NEGATIVE)
[2023-05-12 16:46] LABS: INFLUENZA TYPE A Negative (NEGATIVE); INFLUENZA TYPE B NEGATIVE (NEGATIVE)
[2023-05-12 16:49] LABS: ANION GAP 4 (5-15); CALCIUM 8.3 mg/dL (8.4-11.0); CARBON DIOXIDE 32 mmol/L (23-29); CHLORIDE 100 mmol/L (98-107); CREATININE 1.21 mg/dL (0.55-1.30); GLUCOSE 98 mg/dL (74-106); POTASSIUM 3.1 mmol/L (3.5-5.1); SODIUM SERUM 136 mmol/L (136-145); UREA NITROGEN, BLOOD 19 mg/dL (8-21)
[2023-05-12 16:51] LABS: INR 1.6 (0.80-1.20); PROTHROMBIN TIME 15.8 SECS (9.5-12.5)
[2023-05-12 16:56] LABS: BASOPHILS # (AUTO) 0.2 K/uL (0.0-0.2)
[2023-05-12 17:23] LABS: ALANINE AMINOTRANSFERASE 31 U/L (12-78); ALBUMIN 2.1 g/dL (3.4-4.8); AMYLASE 77 U/L (0-100); ASPARTATE AMINOTRANSFERASE 40 U/L (10-37); BILIRUBIN,DIRECT 1.6 mg/dL (0.0-0.3); CREATINE KINASE, TOTAL 30 U/L (39-308); LIPASE 105 U/L (16-77); TOTAL BILIRUBIN 3.3 mg/dL (0.0-1.0); TOTAL PROTEIN, SERUM 7.4 g/dL (6.4-8.3)
[2023-05-12] MEDS ORDERED: ACETAMINOPHEN 325 MG TABLET PO PRN (18:15)
[2023-05-12] MEDS ORDERED: MORPHINE 2 MG/ML INJ. SYRINGE IVP PRN (18:15)
[2023-05-12] MEDS ORDERED: HYDROcodone/ACETAMIN 10-325 MG TAB PO PRN (18:15)
[2023-05-12] MEDS ORDERED: HYDROcodone/ACETAMIN 5-325 MG TAB (NORCO/ VICODIN) PO PRN (18:15)
[2023-05-12] MEDS: FUROSEMIDE 40 MG/4 ML VIAL IVP ONE (18:15)
[2023-05-12] MEDS ORDERED: niCARdipine 50 MG in D5W 230 ML IV PRN (19:15)
[2023-05-12] MEDS: ALBUMIN HUMAN 5% 250 ML IV ONE (19:33)
[2023-05-12 21:00] VITALS: BP_SYST 92; BP_SYST 99; PULSE 136; PULSE 145; RESP 24; RESP 25; TEMP 96.9; O2SAT 92; O2SAT 95
[2023-05-12 22:00] VITALS: BP_SYST 95; PULSE 109; RESP 23; O2SAT 89
[2023-05-12] MEDS ORDERED: NOREPINEPHRINE BITARTRATE 4 MG in D5W 246 ML IV PRN (22:00)
[2023-05-12] MEDS: CEFEPIME 2 GM in D5W 100 ML IV SCH (22:00)
[2023-05-12] MEDS: AMIODARONE HCL 150 MG in D5W 100 ML IV ONE (22:30)
[2023-05-12] MEDS: AMIODARONE HCL 450 MG/9 ML VIAL IV ONE (22:58)
[2023-05-12] MEDS: AMIODARONE HCL 150 MG/3ML VIAL ONE (22:59)
[2023-05-12 23:00] VITALS: BP_SYST 100; PULSE 94; RESP 24; O2SAT 95
[2023-05-12] MEDS: VANCOMYCIN HCL 1,500 MG in NS 250 ML IV ONE (23:00)
[2023-05-12] MEDS: AMIODARONE HCL 450 MG in D5W 241 ML IV SCH (23:18)
[2023-05-12] MEDS: VANCOMYCIN HCL 1000 MG/VIAL IV ONE (23:21)
[2023-05-12] MEDS: VANCOMYCIN HCL 500 MG/VIAL IV ONE (23:21)
[2023-05-12] MEDS: CEFEPIME 2 GM/VIAL (MAXIPIME) ONE (23:21)
[2023-05-13] VITALS (24 sets, daily range): BP systolic 95–149; PULSE 67–125; RESP 15–26; TEMP 96.8–97.8; O2SAT 90–99
[2023-05-13 04:57] LABS: BASOPHILS # (AUTO) 0.1 K/uL (0.0-0.2); BASOPHILS % (AUTO) 1.2 % (0.0-2.0); EOSINOPHILS # (AUTO) 0.4 K/uL (0.0-0.4); EOSINOPHILS % (AUTO) 5.7 % (0.0-4.0); HEMATOCRIT 32.6 % (36-54); HEMOGLOBIN 11.4 g/dL (14.0-18.0); LYMPHOCYTES # (AUTO) 0.9 K/uL (1.0-5.5); LYMPHOCYTES % (AUTO) 13.6 % (20.5-51.5); MEAN CORPUSCULAR HEMOGLOBIN 36 pg (27-31); MEAN CORPUSCULAR HGB CONC 35 % (32-36); MEAN CORPUSCULAR VOLUME 102 fL (79.0-98.0); MONOCYTES # (AUTO) 0.6 K/uL (0.0-1.0); MONOCYTES % (AUTO) 9.1 % (1.7-9.3); NEUTROPHILS # (AUTO) 4.6 K/uL (1.8-7.7); NEUTROPHILS % (AUTO) 70.4 % (40.0-70.0); PLATELET COUNT (AUTO) 64 K/uL (130-430); RED CELL DISTRIBUTION WIDTH 15.7 % (9.0-15.0); WHITE BLOOD COUNT (AUTO) 6.5 K/uL (4.8-10.8)
[2023-05-13 05:14] LABS: ALANINE AMINOTRANSFERASE 23 U/L (12-78); ANION GAP 6 (5-15); ASPARTATE AMINOTRANSFERASE 32 U/L (10-37); CALCIUM 8.1 mg/dL (8.4-11.0); CARBON DIOXIDE 29 mmol/L (23-29); CHLORIDE 103 mmol/L (98-107); CREATININE 1.09 mg/dL (0.55-1.30); GLUCOSE 91 mg/dL (74-106); SODIUM SERUM 138 mmol/L (136-145); TOTAL BILIRUBIN 4.2 mg/dL (0.0-1.0); TOTAL PROTEIN, SERUM 6.4 g/dL (6.4-8.3); UREA NITROGEN, BLOOD 19 mg/dL (8-21)
[2023-05-13] MEDS: KCL 40 mEq in 100 mL (PREMIX) 100 ML IV ONE (07:57)
[2023-05-13] MEDS: DILTIAZEM HCL 180 MG CAP.SR.24H PO SCH (08:26)
[2023-05-13] MEDS: LEVOTHYROXINE SODIUM 0.05 MG TABLET PO SCH (08:27)
[2023-05-13] MEDS: APIXABAN 2.5 MG TABLET PO SCH (08:27)
[2023-05-13] MEDS: VANCOMYCIN HCL 1,500 MG in NS 250 ML IV SCH (11:24)
[2023-05-13] MEDS: FUROSEMIDE 40 MG/4 ML VIAL IVP ONE (11:26)
[2023-05-13] MEDS: DIGOXIN 0.5 MG/2 ML AMP IVP ONE ×2 (11:45→23:39)
[2023-05-13] MEDS: ALBUMIN HUMAN 25% 50 ML IV SCH (13:32)
[2023-05-13] MEDS: FUROSEMIDE 100 MG in D5W 90 ML IV SCH (15:00)
[2023-05-13] MEDS: DIGOXIN 0.125 MG TABLET PO ONE (17:55)
[2023-05-13] MEDS: NYSTATIN 15 GM TOPICAL POWDER TP ONE (19:21)
[2023-05-13] MEDS: NYSTATIN 15 GM TOPICAL POWDER TP SCH (21:23)
[2023-05-14] VITALS (24 sets, daily range): BP systolic 92–121; PULSE 67–99; RESP 12–30; TEMP 96.7–97.9; O2SAT 90–97
[2023-05-14 06:06] LABS: HEMOGLOBIN 12.4 g/dL (14.0-18.0); MEAN CORPUSCULAR HEMOGLOBIN 35 pg (27-31); MEAN CORPUSCULAR HGB CONC 35 % (32-36); MEAN CORPUSCULAR VOLUME 102 fL (79.0-98.0); PLATELET COUNT (AUTO) 67 K/uL (130-430); RED BLOOD CELL COUNT(AUTO) 3.53 MIL/uL (4.2-6.2); RED CELL DISTRIBUTION WIDTH 15.6 % (9.0-15.0); WHITE BLOOD COUNT (AUTO) 5.3 K/uL (4.8-10.8)
[2023-05-14 06:37] LABS: ALANINE AMINOTRANSFERASE 24 U/L (12-78); ALBUMIN 2.4 g/dL (3.4-4.8); ANION GAP 6 (5-15); ASPARTATE AMINOTRANSFERASE 34 U/L (10-37); CALCIUM 8.4 mg/dL (8.4-11.0); CARBON DIOXIDE 30 mmol/L (23-29); CHLORIDE 106 mmol/L (98-107); CREATININE 1.16 mg/dL (0.55-1.30); GLUCOSE 85 mg/dL (74-106); POTASSIUM 3.3 mmol/L (3.5-5.1); SODIUM SERUM 142 mmol/L (136-145); TOTAL BILIRUBIN 4.6 mg/dL (0.0-1.0); TOTAL PROTEIN, SERUM 7.1 g/dL (6.4-8.3); UREA NITROGEN, BLOOD 21 mg/dL (8-21)
[2023-05-14 08:00] LABS: BASOPHILS % (MANUAL) 0 % (0-2); EOSINOPHILS % (MANUAL) 8 % (0-7); LYMPHOCYTES % (MANUAL) 7 % (20-46); MONOCYTES % (MANUAL) 6 % (0-11); PLATELET ESTIMATE DECREASED (ADEQUATE)
[2023-05-14] MEDS ORDERED: FUROSEMIDE 40 MG/4 ML VIAL IVP SCH (09:00)
[2023-05-14] MEDS: SPIRONOLACTONE 25 MG TABLET (ALDACTONE) PO SCH (09:30)
[2023-05-14] MEDS: POTASSIUM CHLORIDE 20 MEQ TABLET.ER PO ONE (11:23)
[2023-05-15] VITALS (16 sets, daily range): BP systolic 90–158; PULSE 60–85; RESP 15–22; TEMP 97.1–98; O2SAT 91–99
[2023-05-15 05:20] LABS: ERYTHROCYTE SEDIMENTATION RATE 39 MM/HR (0-15)
[2023-05-15 05:28] LABS: BASOPHILS # (AUTO) 0.1 K/uL (0.0-0.2); BASOPHILS % (AUTO) 1.5 % (0.0-2.0); EOSINOPHILS # (AUTO) 0.4 K/uL (0.0-0.4); EOSINOPHILS % (AUTO) 6.5 % (0.0-4.0); HEMATOCRIT 36.5 % (36-54); HEMOGLOBIN 12.6 g/dL (14.0-18.0); LYMPHOCYTES # (AUTO) 0.8 K/uL (1.0-5.5); MEAN CORPUSCULAR HEMOGLOBIN 35 pg (27-31); MEAN CORPUSCULAR HGB CONC 35 % (32-36); MEAN CORPUSCULAR VOLUME 102 fL (79.0-98.0); MONOCYTES # (AUTO) 0.7 K/uL (0.0-1.0); MONOCYTES % (AUTO) 11.9 % (1.7-9.3); NEUTROPHILS # (AUTO) 3.7 K/uL (1.8-7.7); NEUTROPHILS % (AUTO) 66.1 % (40.0-70.0); PLATELET COUNT (AUTO) 71 K/uL (130-430); RED BLOOD CELL COUNT(AUTO) 3.58 MIL/uL (4.2-6.2); RED CELL DISTRIBUTION WIDTH 15.6 % (9.0-15.0); WHITE BLOOD COUNT (AUTO) 5.5 K/uL (4.8-10.8)
[2023-05-15 05:46] LABS: ALANINE AMINOTRANSFERASE 24 U/L (12-78); ALBUMIN 2.4 g/dL (3.4-4.8); ANION GAP 6 (5-15); ASPARTATE AMINOTRANSFERASE 37 U/L (10-37); CALCIUM 8.6 mg/dL (8.4-11.0); CARBON DIOXIDE 30 mmol/L (23-29); CHLORIDE 106 mmol/L (98-107); CREATININE 1.26 mg/dL (0.55-1.30); GLUCOSE 96 mg/dL (74-106); PHOSPHORUS 2.8 mg/dL (2.7-4.5); POTASSIUM 3.3 mmol/L (3.5-5.1); SODIUM SERUM 142 mmol/L (136-145); TOTAL BILIRUBIN 4.4 mg/dL (0.0-1.0); TOTAL PROTEIN, SERUM 7.1 g/dL (6.4-8.3); UREA NITROGEN, BLOOD 23 mg/dL (8-21)
[2023-05-15] MEDS: POTASSIUM CHLORIDE 20 MEQ TABLET.ER PO ONE (13:29)
[2023-05-16] VITALS (10 sets, daily range): BP systolic 94–164; PULSE 56–85; RESP 16–19; TEMP 97–98.6; O2SAT 95–98
[2023-05-16 19:07] LABS: MYCOPLASMA PNEUMONIAE IgM <770 U/mL (0-769)
[2023-05-16 20:06] LABS: LEGIONELLA PNEUMOPHILIA AB <0.91 OD ratio (0.00-0.90)
[2023-05-17] VITALS: BP_SYST 102; PULSE 70; RESP 18; TEMP 97.1; O2SAT 97
[2023-05-17 05:47] LABS: BASOPHILS # (AUTO) 0.1 K/uL (0.0-0.2); BASOPHILS % (AUTO) 1.6 % (0.0-2.0); EOSINOPHILS # (AUTO) 0.4 K/uL (0.0-0.4); EOSINOPHILS % (AUTO) 7.9 % (0.0-4.0); HEMATOCRIT 37.2 % (36-54); HEMOGLOBIN 12.8 g/dL (14.0-18.0); LYMPHOCYTES # (AUTO) 0.8 K/uL (1.0-5.5); LYMPHOCYTES % (AUTO) 16.4 % (20.5-51.5); MEAN CORPUSCULAR HEMOGLOBIN 35 pg (27-31); MEAN CORPUSCULAR HGB CONC 34 % (32-36); MEAN CORPUSCULAR VOLUME 103 fL (79.0-98.0); MONOCYTES # (AUTO) 0.5 K/uL (0.0-1.0); MONOCYTES % (AUTO) 9.4 % (1.7-9.3); NEUTROPHILS # (AUTO) 3.3 K/uL (1.8-7.7); NEUTROPHILS % (AUTO) 64.7 % (40.0-70.0); PLATELET COUNT (AUTO) 59 K/uL (130-430); RED BLOOD CELL COUNT(AUTO) 3.62 MIL/uL (4.2-6.2); RED CELL DISTRIBUTION WIDTH 15.7 % (9.0-15.0); WHITE BLOOD COUNT (AUTO) 5.1 K/uL (4.8-10.8)
[2023-05-17 05:55] LABS: ANION GAP 10 (5-15); CALCIUM 9.1 mg/dL (8.4-11.0); CARBON DIOXIDE 29 mmol/L (23-29); CHLORIDE 102 mmol/L (98-107); CREATININE 1.49 mg/dL (0.55-1.30); GLUCOSE 93 mg/dL (74-106); POTASSIUM 3.5 mmol/L (3.5-5.1); SODIUM SERUM 141 mmol/L (136-145); UREA NITROGEN, BLOOD 24 mg/dL (8-21)
[2023-05-17 08:00] VITALS: O2SAT 96
[2023-05-17 11:59] VITALS: BP_SYST 100; PULSE 74; RESP 18; TEMP 98; O2SAT 95
[2023-05-17 17:35] VITALS: BP_SYST 105; PULSE 80; RESP 21; TEMP 98.7; O2SAT 95
[2023-05-17] MEDS: FUROSEMIDE 40 MG TABLET PO SCH (18:44)
[2023-05-17 19:00] VITALS: O2SAT 97
[2023-05-17 20:00] VITALS: BP_SYST 108; PULSE 84; RESP 16; TEMP 98.2; O2SAT 95
[2023-05-18] VITALS: BP_SYST 114; PULSE 78; RESP 18; TEMP 98.5; O2SAT 97
[2023-05-18 05:19] LABS: BASOPHILS # (AUTO) 0.1 K/uL (0.0-0.2); BASOPHILS % (AUTO) 1.3 % (0.0-2.0); EOSINOPHILS # (AUTO) 0.4 K/uL (0.0-0.4); EOSINOPHILS % (AUTO) 7.6 % (0.0-4.0); HEMATOCRIT 36.5 % (36-54); HEMOGLOBIN 12.7 g/dL (14.0-18.0); LYMPHOCYTES # (AUTO) 0.8 K/uL (1.0-5.5); LYMPHOCYTES % (AUTO) 16.1 % (20.5-51.5); MEAN CORPUSCULAR HEMOGLOBIN 35 pg (27-31); MEAN CORPUSCULAR HGB CONC 35 % (32-36); MEAN CORPUSCULAR VOLUME 102 fL (79.0-98.0); MONOCYTES # (AUTO) 0.6 K/uL (0.0-1.0); MONOCYTES % (AUTO) 10.7 % (1.7-9.3); NEUTROPHILS # (AUTO) 3.3 K/uL (1.8-7.7); NEUTROPHILS % (AUTO) 64.3 % (40.0-70.0); PLATELET COUNT (AUTO) 58 K/uL (130-430); RED CELL DISTRIBUTION WIDTH 15.8 % (9.0-15.0); WHITE BLOOD COUNT (AUTO) 5.2 K/uL (4.8-10.8)
[2023-05-18 05:41] LABS: ANION GAP 7 (5-15); CALCIUM 9.1 mg/dL (8.4-11.0); CARBON DIOXIDE 29 mmol/L (23-29); CHLORIDE 101 mmol/L (98-107); CREATININE 1.65 mg/dL (0.55-1.30); GLUCOSE 94 mg/dL (74-106); POTASSIUM 3.6 mmol/L (3.5-5.1); SODIUM SERUM 137 mmol/L (136-145); UREA NITROGEN, BLOOD 26 mg/dL (8-21)
[2023-05-18 08:00] VITALS: BP_SYST 110; PULSE 74; RESP 20; TEMP 97.7; O2SAT 97
[2023-05-18] MEDS: SPIRONOLACTONE 50 MG TABLET (ALDACTONE) PO SCH (09:29)
[2023-05-18 11:06] LABS: AFP, TUMOR MARKER <1.8 ng/mL (0.0-8.4); CEA 3.3 ng/mL (0.0-4.7)
[2023-05-18 12:54] VITALS: BP_SYST 95; PULSE 96; RESP 20; TEMP 98.4; O2SAT 96
[2023-05-18 16:30] VITALS: BP_SYST 108; PULSE 101; RESP 18; TEMP 98.8; O2SAT 94
[2023-05-18 20:00] VITALS: BP_SYST 101; PULSE 69; RESP 18; TEMP 97.5; O2SAT 99
[2023-05-19 00:26] VITALS: BP_SYST 107; PULSE 66; RESP 19; TEMP 97.2; O2SAT 95
[2023-05-19 08:00] VITALS: O2SAT 98
[2023-05-19 12:00] VITALS: BP_SYST 99; PULSE 91; RESP 22; TEMP 98.2; O2SAT 94
[2023-05-19 16:29] VITALS: BP_SYST 95; PULSE 96; RESP 20; TEMP 98.7; O2SAT 96
[2023-05-19 20:00] VITALS: BP_SYST 95; PULSE 76; RESP 20; TEMP 98.4; O2SAT 97
[2023-05-20 00:24] VITALS: BP_SYST 110; PULSE 70; RESP 17; TEMP 97.7; O2SAT 96
[2023-05-20 08:45] VITALS: BP_SYST 109; PULSE 72; RESP 20; TEMP 97.2; O2SAT 97
[2023-05-20 09:36] VITALS: O2SAT 97
[2023-05-20 11:31] LABS: BASOPHILS # (AUTO) 0.1 K/uL (0.0-0.2); BASOPHILS % (AUTO) 1.2 % (0.0-2.0); EOSINOPHILS # (AUTO) 0.4 K/uL (0.0-0.4); EOSINOPHILS % (AUTO) 6.1 % (0.0-4.0); HEMATOCRIT 35.5 % (36-54); HEMOGLOBIN 12.4 g/dL (14.0-18.0); LYMPHOCYTES # (AUTO) 0.9 K/uL (1.0-5.5); LYMPHOCYTES % (AUTO) 13.7 % (20.5-51.5); MEAN CORPUSCULAR HEMOGLOBIN 36 pg (27-31); MEAN CORPUSCULAR HGB CONC 35 % (32-36); MEAN CORPUSCULAR VOLUME 102 fL (79.0-98.0); MONOCYTES # (AUTO) 0.7 K/uL (0.0-1.0); MONOCYTES % (AUTO) 10.7 % (1.7-9.3); NEUTROPHILS # (AUTO) 4.6 K/uL (1.8-7.7); NEUTROPHILS % (AUTO) 68.3 % (40.0-70.0); PLATELET COUNT (AUTO) 58 K/uL (130-430); RED CELL DISTRIBUTION WIDTH 15.9 % (9.0-15.0); WHITE BLOOD COUNT (AUTO) 6.7 K/uL (4.8-10.8)
[2023-05-20 11:42] LABS: ANION GAP 6 (5-15); CARBON DIOXIDE 28 mmol/L (23-29); CHLORIDE 98 mmol/L (98-107); CREATININE 1.88 mg/dL (0.55-1.30); GLUCOSE 113 mg/dL (74-106); POTASSIUM 3.1 mmol/L (3.5-5.1); SODIUM SERUM 132 mmol/L (136-145); UREA NITROGEN, BLOOD 29 mg/dL (8-21)
[2023-05-20 12:00] VITALS: BP_SYST 104; PULSE 54; RESP 18; TEMP 98.1; O2SAT 90
[2023-05-20] MEDS: CEFEPIME 2 GM in D5W 100 ML IV SCH (15:40)
[2023-05-20 16:00] VITALS: BP_SYST 4; PULSE 67; RESP 18; TEMP 98; O2SAT 93
[2023-05-20 20:00] VITALS: BP_SYST 106; PULSE 78; RESP 18; TEMP 97.3; O2SAT 78
[2023-05-21] VITALS (7 sets, daily range): BP systolic 107–146; PULSE 76–85; RESP 18–20; TEMP 97.1–97.7; O2SAT 94–97
[2023-05-21 00:06] LABS: QUANTIFERON TB GOLD Indeterminate (Negative)
[2023-05-21 04:48] LABS: BASOPHILS # (AUTO) 0.1 K/uL (0.0-0.2); BASOPHILS % (AUTO) 1.3 % (0.0-2.0); EOSINOPHILS # (AUTO) 0.5 K/uL (0.0-0.4); EOSINOPHILS % (AUTO) 6.2 % (0.0-4.0); HEMATOCRIT 36.8 % (36-54); HEMOGLOBIN 12.9 g/dL (14.0-18.0); LYMPHOCYTES # (AUTO) 1.2 K/uL (1.0-5.5); LYMPHOCYTES % (AUTO) 17.1 % (20.5-51.5); MEAN CORPUSCULAR HEMOGLOBIN 36 pg (27-31); MEAN CORPUSCULAR HGB CONC 35 % (32-36); MEAN CORPUSCULAR VOLUME 102 fL (79.0-98.0); MONOCYTES # (AUTO) 0.8 K/uL (0.0-1.0); MONOCYTES % (AUTO) 10.6 % (1.7-9.3); NEUTROPHILS # (AUTO) 4.7 K/uL (1.8-7.7); NEUTROPHILS % (AUTO) 64.8 % (40.0-70.0); PLATELET COUNT (AUTO) 70 K/uL (130-430); RED CELL DISTRIBUTION WIDTH 15.9 % (9.0-15.0); WHITE BLOOD COUNT (AUTO) 7.3 K/uL (4.8-10.8)
[2023-05-21 04:56] LABS: ALANINE AMINOTRANSFERASE 35 U/L (12-78); ALBUMIN 2.2 g/dL (3.4-4.8); ANION GAP 7 (5-15); ASPARTATE AMINOTRANSFERASE 48 U/L (10-37); CARBON DIOXIDE 28 mmol/L (23-29); CHLORIDE 98 mmol/L (98-107); CREATININE 1.76 mg/dL (0.55-1.30); GLUCOSE 99 mg/dL (74-106); POTASSIUM 3.3 mmol/L (3.5-5.1); SODIUM SERUM 133 mmol/L (136-145); TOTAL BILIRUBIN 3.3 mg/dL (0.0-1.0); TOTAL PROTEIN, SERUM 7.5 g/dL (6.4-8.3); UREA NITROGEN, BLOOD 28 mg/dL (8-21)
[2023-05-21 06:06] LABS: COCCIDIOIDES AB IGG 1.1 IV (<=0.9); COCCIDIOIDES AB IGM 0.2 IV (<=0.9)
[2023-05-22] VITALS (8 sets, daily range): BP systolic 98–116; PULSE 70–88; RESP 18–19; TEMP 97.2–98.4; O2SAT 92–98
[2023-05-22 11:06] LABS: INR 1.6 (0.80-1.20); PROTHROMBIN TIME 15.9 SECS (9.5-12.5)
[2023-05-22 23:38] LABS: BODY FLUID SOURCE/ TYPE ASCITES; SOURCE/TYPE ,BODY FLUID PARACENTESIS
[2023-05-22 23:39] LABS: APPEARANCE,SPUN,BODY FLUID HAZY (CLEAR); BF APPEARANCE UNSPUN SLIGHTLY CLOUDY (CLEAR); BODY FLUID COLOR YELLOW (LT YELLOW); BODY FLUID TOTAL VOLUME 2450 mL; EOSINOPHIL, BODY FLUID 0 %; LYMPHOCYTES, BODY FLUID 56 %; MONOCYTES,BODY FLUID 41 %; NEUTROPHIL, BODY FLUID 3 %; RBC, BODY FLUID 2369 /uL; WBC, BODY FLUID 240 /uL
[2023-05-23] VITALS (8 sets, daily range): BP systolic 94–115; PULSE 65–86; RESP 18–21; TEMP 97.1–98.1; O2SAT 92–98
[2023-05-23 06:31] LABS: BASOPHILS # (AUTO) 0.1 K/uL (0.0-0.2); EOSINOPHILS # (AUTO) 0.5 K/uL (0.0-0.4); EOSINOPHILS % (AUTO) 6.7 % (0.0-4.0); HEMATOCRIT 35.9 % (36-54); HEMOGLOBIN 12.5 g/dL (14.0-18.0); LYMPHOCYTES # (AUTO) 1.2 K/uL (1.0-5.5); LYMPHOCYTES % (AUTO) 16.1 % (20.5-51.5); MEAN CORPUSCULAR HEMOGLOBIN 36 pg (27-31); MEAN CORPUSCULAR HGB CONC 35 % (32-36); MEAN CORPUSCULAR VOLUME 102 fL (79.0-98.0); MONOCYTES # (AUTO) 0.8 K/uL (0.0-1.0); MONOCYTES % (AUTO) 11.6 % (1.7-9.3); NEUTROPHILS # (AUTO) 4.6 K/uL (1.8-7.7); NEUTROPHILS % (AUTO) 63.6 % (40.0-70.0); PLATELET COUNT (AUTO) 61 K/uL (130-430); RED BLOOD CELL COUNT(AUTO) 3.51 MIL/uL (4.2-6.2); RED CELL DISTRIBUTION WIDTH 16.1 % (9.0-15.0); WHITE BLOOD COUNT (AUTO) 7.2 K/uL (4.8-10.8)
[2023-05-23 06:57] LABS: ALANINE AMINOTRANSFERASE 32 U/L (12-78); ANION GAP 7 (5-15); ASPARTATE AMINOTRANSFERASE 39 U/L (10-37); CALCIUM 8.6 mg/dL (8.4-11.0); CARBON DIOXIDE 26 mmol/L (23-29); CHLORIDE 98 mmol/L (98-107); CREATININE 2.05 mg/dL (0.55-1.30); GLUCOSE 85 mg/dL (74-106); POTASSIUM 3.2 mmol/L (3.5-5.1); SODIUM SERUM 131 mmol/L (136-145); TOTAL BILIRUBIN 3.9 mg/dL (0.0-1.0); TOTAL PROTEIN, SERUM 7.3 g/dL (6.4-8.3); UREA NITROGEN, BLOOD 35 mg/dL (8-21)
[2023-05-23 09:32] LABS: BODY FLUID GLUCOSE 128 mg/dL
[2023-05-23 09:33] LABS: BODY FLUID TOTAL PROTEIN 1.7 g/dL
[2023-05-23] MEDS: RIFAXIMIN 550 MG TABLET PO ONE (10:30)
[2023-05-23] MEDS: RIFAXIMIN 550 MG TABLET PO SCH (20:17)
[2023-05-24 00:14] VITALS: BP_SYST 104; PULSE 78; RESP 18; TEMP 97; O2SAT 99
[2023-05-24 05:34] LABS: BASOPHILS # (AUTO) 0.1 K/uL (0.0-0.2); BASOPHILS % (AUTO) 1.4 % (0.0-2.0); EOSINOPHILS # (AUTO) 0.4 K/uL (0.0-0.4); EOSINOPHILS % (AUTO) 5.6 % (0.0-4.0); HEMATOCRIT 36.1 % (36-54); HEMOGLOBIN 12.4 g/dL (14.0-18.0); LYMPHOCYTES # (AUTO) 1.3 K/uL (1.0-5.5); LYMPHOCYTES % (AUTO) 18.5 % (20.5-51.5); MEAN CORPUSCULAR HEMOGLOBIN 35 pg (27-31); MEAN CORPUSCULAR HGB CONC 35 % (32-36); MEAN CORPUSCULAR VOLUME 102 fL (79.0-98.0); MONOCYTES # (AUTO) 0.8 K/uL (0.0-1.0); MONOCYTES % (AUTO) 10.8 % (1.7-9.3); NEUTROPHILS # (AUTO) 4.6 K/uL (1.8-7.7); NEUTROPHILS % (AUTO) 63.7 % (40.0-70.0); PLATELET COUNT (AUTO) 60 K/uL (130-430); RED BLOOD CELL COUNT(AUTO) 3.52 MIL/uL (4.2-6.2); RED CELL DISTRIBUTION WIDTH 15.9 % (9.0-15.0); WHITE BLOOD COUNT (AUTO) 7.2 K/uL (4.8-10.8)
[2023-05-24 06:03] LABS: ALANINE AMINOTRANSFERASE 31 U/L (12-78); ANION GAP 10 (5-15); ASPARTATE AMINOTRANSFERASE 42 U/L (10-37); CALCIUM 8.8 mg/dL (8.4-11.0); CARBON DIOXIDE 25 mmol/L (23-29); CHLORIDE 98 mmol/L (98-107); CREATININE 2.12 mg/dL (0.55-1.30); GLUCOSE 85 mg/dL (74-106); POTASSIUM 3.6 mmol/L (3.5-5.1); SODIUM SERUM 133 mmol/L (136-145); TOTAL BILIRUBIN 4.1 mg/dL (0.0-1.0); TOTAL PROTEIN, SERUM 7.5 g/dL (6.4-8.3); UREA NITROGEN, BLOOD 39 mg/dL (8-21)
[2023-05-24 08:00] VITALS: BP_SYST 111; PULSE 78; RESP 20; TEMP 96.8; O2SAT 96
[2023-05-24 12:28] VITALS: BP_SYST 106; PULSE 70; RESP 16; TEMP 98.1; O2SAT 97
[2023-05-24] MEDS: ALBUMIN HUMAN 25% 100 ML IV SCH (12:31)
[2023-05-24 16:17] VITALS: BP_SYST 103; PULSE 74; RESP 20; TEMP 97.5; O2SAT 99
[2023-05-24 20:00] VITALS: BP_SYST 99; PULSE 70; RESP 18; TEMP 97.9; O2SAT 96
[2023-05-25 00:52] VITALS: BP_SYST 96; PULSE 98; RESP 18; TEMP 98.1; O2SAT 95
[2023-05-25] MEDS ORDERED: RIFA550T5 PO (03:45)
[2023-05-25 07:05] LABS: HEMATOCRIT 32.5 % (36-54); HEMOGLOBIN 11.2 g/dL (14.0-18.0); MEAN CORPUSCULAR HEMOGLOBIN 36 pg (27-31); MEAN CORPUSCULAR HGB CONC 35 % (32-36); MEAN CORPUSCULAR VOLUME 102 fL (79.0-98.0); PLATELET COUNT (AUTO) 52 K/uL (130-430); RED BLOOD CELL COUNT(AUTO) 3.17 MIL/uL (4.2-6.2); RED CELL DISTRIBUTION WIDTH 16.1 % (9.0-15.0); WHITE BLOOD COUNT (AUTO) 4.4 K/uL (4.8-10.8)
[2023-05-25 07:24] LABS: ANION GAP 7 (5-15); CALCIUM 8.8 mg/dL (8.4-11.0); CARBON DIOXIDE 27 mmol/L (23-29); CHLORIDE 101 mmol/L (98-107); GLUCOSE 82 mg/dL (74-106); POTASSIUM 3.6 mmol/L (3.5-5.1); SODIUM SERUM 135 mmol/L (136-145); TOTAL BILIRUBIN 4.4 mg/dL (0.0-1.0); UREA NITROGEN, BLOOD 43 mg/dL (8-21)
[2023-05-25 07:25] LABS: ALANINE AMINOTRANSFERASE 25 U/L (12-78); ALBUMIN 2.7 g/dL (3.4-4.8); ASPARTATE AMINOTRANSFERASE 33 U/L (10-37); TOTAL PROTEIN, SERUM 6.9 g/dL (6.4-8.3)
[2023-05-25 08:12] LABS: ANISOCYTOSIS 1+; BASOPHILS % (MANUAL) 0 % (0-2); EOSINOPHILS % (MANUAL) 8 % (0-7); LYMPHOCYTES % (MANUAL) 13 % (20-46); MONOCYTES % (MANUAL) 15 % (0-11); PLATELET ESTIMATE DECREASED (ADEQUATE)
[2023-05-25 09:00] VITALS: O2SAT 99
[2023-05-25 11:55] VITALS: BP_SYST 94; PULSE 68; RESP 22; TEMP 97.9; O2SAT 95
[2023-05-25 17:27] VITALS: BP_SYST 115; PULSE 81; RESP 21; TEMP 98; O2SAT 94
[2023-05-25 20:00] VITALS: BP_SYST 99; PULSE 79; RESP 22; TEMP 97.4; O2SAT 96
[2023-05-25] MEDS: ONDANSETRON HCL 4 MG/2 ML VIAL IVP PRN (20:36)
[2023-05-26 01:10] VITALS: BP_SYST 104; PULSE 67; RESP 19; TEMP 98.6; O2SAT 96
[2023-05-26 06:28] LABS: ANION GAP 9 (5-15); CALCIUM 9.3 mg/dL (8.4-11.0); CARBON DIOXIDE 25 mmol/L (23-29); CHLORIDE 101 mmol/L (98-107); CREATININE 2.47 mg/dL (0.55-1.30); GLUCOSE 90 mg/dL (74-106); PHOSPHORUS 3.5 mg/dL (2.7-4.5); POTASSIUM 4.1 mmol/L (3.5-5.1); SODIUM SERUM 135 mmol/L (136-145); UREA NITROGEN, BLOOD 45 mg/dL (8-21)
[2023-05-26 07:52] LABS: BASOPHILS # (AUTO) 0.1 K/uL (0.0-0.2); BASOPHILS % (AUTO) 2.5 % (0.0-2.0); EOSINOPHILS # (AUTO) 0.3 K/uL (0.0-0.4); EOSINOPHILS % (AUTO) 6.8 % (0.0-4.0); HEMOGLOBIN 12.3 g/dL (14.0-18.0); LYMPHOCYTES # (AUTO) 0.8 K/uL (1.0-5.5); LYMPHOCYTES % (AUTO) 16.1 % (20.5-51.5); MEAN CORPUSCULAR HEMOGLOBIN 35 pg (27-31); MEAN CORPUSCULAR HGB CONC 34 % (32-36); MEAN CORPUSCULAR VOLUME 103 fL (79.0-98.0); MONOCYTES # (AUTO) 0.6 K/uL (0.0-1.0); MONOCYTES % (AUTO) 11.2 % (1.7-9.3); NEUTROPHILS # (AUTO) 3.2 K/uL (1.8-7.7); NEUTROPHILS % (AUTO) 63.4 % (40.0-70.0); PLATELET COUNT (AUTO) 64 K/uL (130-430); RED CELL DISTRIBUTION WIDTH 15.6 % (9.0-15.0); WHITE BLOOD COUNT (AUTO) 5.1 K/uL (4.8-10.8)
[2023-05-26 08:00] VITALS: BP_SYST 106; PULSE 81; RESP 20; TEMP 97.1; O2SAT 94
[2023-05-26 11:49] VITALS: BP_SYST 96; PULSE 86; RESP 21; TEMP 97.9; O2SAT 97
[2023-05-26 18:10] VITALS: BP_SYST 106; PULSE 85; RESP 21; TEMP 97.6; O2SAT 93
[2023-05-26 20:00] VITALS: BP_SYST 105; PULSE 88; RESP 20; TEMP 98; O2SAT 98; O2SAT 99
[2023-05-27 00:21] VITALS: BP_SYST 100; PULSE 91; RESP 18; TEMP 97.8; O2SAT 97
[2023-05-27 05:24] LABS: EOSINOPHILS # (AUTO) 0.3 K/uL (0.0-0.4); EOSINOPHILS % (AUTO) 5.4 % (0.0-4.0); LYMPHOCYTES % (AUTO) 17.9 % (20.5-51.5); MEAN CORPUSCULAR HEMOGLOBIN 35 pg (27-31); MEAN CORPUSCULAR HGB CONC 34 % (32-36); MEAN CORPUSCULAR VOLUME 103 fL (79.0-98.0); MONOCYTES # (AUTO) 0.6 K/uL (0.0-1.0); NEUTROPHILS # (AUTO) 3.5 K/uL (1.8-7.7); PLATELET COUNT (AUTO) 64 K/uL (130-430); RED BLOOD CELL COUNT(AUTO) 3.41 MIL/uL (4.2-6.2); RED CELL DISTRIBUTION WIDTH 15.3 % (9.0-15.0); WHITE BLOOD COUNT (AUTO) 5.5 K/uL (4.8-10.8)
[2023-05-27 06:12] LABS: ALANINE AMINOTRANSFERASE 34 U/L (12-78); ALBUMIN 2.6 g/dL (3.4-4.8); ANION GAP 10 (5-15); ASPARTATE AMINOTRANSFERASE 46 U/L (10-37); CALCIUM 9.1 mg/dL (8.4-11.0); CARBON DIOXIDE 26 mmol/L (23-29); CHLORIDE 101 mmol/L (98-107); CREATININE 2.67 mg/dL (0.55-1.30); GLUCOSE 90 mg/dL (74-106); PHOSPHORUS 3.6 mg/dL (2.7-4.5); POTASSIUM 4.1 mmol/L (3.5-5.1); SODIUM SERUM 137 mmol/L (136-145); TOTAL BILIRUBIN 3.6 mg/dL (0.0-1.0); TOTAL PROTEIN, SERUM 7.3 g/dL (6.4-8.3); UREA NITROGEN, BLOOD 47 mg/dL (8-21)
[2023-05-27 07:14] LABS: NEUTROPHILS % (AUTO) 64.8 % (40.0-70.0)
[2023-05-27 07:15] LABS: BASOPHILS # (AUTO) 0.1 K/uL (0.0-0.2); BASOPHILS % (AUTO) 0.9 % (0.0-2.0)
[2023-05-27 08:10] VITALS: BP_SYST 121; PULSE 69; RESP 14; TEMP 96.1
[2023-05-27 11:33] VITALS: BP_SYST 123; PULSE 60; RESP 16; TEMP 98.1; O2SAT 93
[2023-05-27 15:27] VITALS: BP_SYST 148; PULSE 86; RESP 16; TEMP 98; O2SAT 96
[2023-05-27 15:31] VITALS: BP_SYST 92; PULSE 71; RESP 19; TEMP 96.2; O2SAT 96
== END 2023-05-27 16:20 | DRG 432 ==
LOC: SED 16:01 → SIC 18:03 → STU 05-15 20:40 → SMU 05-17 10:43
PROVIDERS: ADMIT Internal Medicine Cardiovascular Disease; ATTEND Family Medicine
PROC: 0W9G3ZZ Drainage of Peritoneal Cavity, Percutaneous Approach (ICD-10-PCS; principal; 2023-05-22)
DX: K70.31 Alcoholic cirrhosis of liver with ascites (principal); J18.9 Pneumonia, unspecified organism; J96.21 Acute and chronic respiratory failure with hypoxia; I13.0 Hypertensive heart and chronic kidney disease with heart failure and stage 1 through stage 4 chronic kidney disease, or unspecified chronic kidney disease; I48.20 Chronic atrial fibrillation, unspecified; I50.32 Chronic diastolic (congestive) heart failure; N17.9 Acute kidney failure, unspecified; I89.8 Other specified noninfective disorders of lymphatic vessels and lymph nodes; N18.30 Chronic kidney disease, stage 3 unspecified; E03.9 Hypothyroidism, unspecified; D53.9 Nutritional anemia, unspecified; D69.59 Other secondary thrombocytopenia; E66.01 Morbid (severe) obesity due to excess calories; E87.6 Hypokalemia; E88.09 Other disorders of plasma-protein metabolism, not elsewhere classified; Z86.73 Personal history of transient ischemic attack (TIA), and cerebral infarction without residual deficits; Z87.891 Personal history of nicotine dependence; Z68.37 Body mass index [BMI] 37.0-37.9, adult; Z79.899 Other long term (current) drug therapy
CPT/HCPCS: 36415; 49083; 71045; 76705; 80048; 80053; 80076; 82042; 82105; 82140; 82150; 82378; 82550; 82947; 83605; 83690; 83735; 83880; 84100; 84157; 84443; 84484; 85007; 85025; 85027; 85610; 85651; 85730; 86304; 86480; 86635; 86713; 86738; 87040; 87070; 87081; 88108; 89051; 89060; 93005; 97110-GP; 97112-GP; 97116-GP; 97530-GP; 99291; G0378; J0282; J0692; J1160; J1940; J2405; J3370; J3480; J3490; J7050; J7060; P9041; P9046